=== PATIENT | female | born 1970 | race Asian ===

== ENCOUNTER 2017-01-04 05:55 | Day surgery (SDC) | payer OTHER ==
[~2017-01-04] VITALS: Ht 157.5 cm; Wt 54.9 kg
[2017-01-04 06:45] VITALS: Ht 157.5 cm; Wt 54.9 kg
[2017-01-04] MEDS ORDERED: ASPI81TA3 PO (06:58)
[2017-01-04] MEDS ORDERED: MULT-762 PO (06:58)
[2017-01-04 07:18] VITALS: BP 118/74; PULSE 92; RESP 20
[2017-01-04] MEDS ORDERED: FENTAnyl 50 MCG/ML VIAL ONE (07:42)
[2017-01-04] MEDS ORDERED: MIDAZOLAM 1 MG/ML 2 ML INJ ONE (07:42)
--- NOTE | 2017-01-04 07:44 | OPPN ---
Date/Time of Note Date/Time of Note DATE: 01/04/17 TIME: 07:42 Operative Report Preoperative Diagnosis Abdominal pain Gastritis Postoperative Diagnosis Gastritis with erosions Operation/Procedure Performed Esophagogastroduodenoscopy and biopsy Provider: JOSE ANTONIO LOPEZ MD Anesthesia Type: moderate sedation Estimated blood loss: none Transfusion Required: no Specimens Gastric mucosal biopsy Grafts/Implants: none Complications: no JOSE ANTONIO LOPEZ MD Jan 04, 2017 07:43
[2017-01-04 08:02] VITALS: BP 108/69; RESP 20
--- NOTE | 2017-01-04 08:26 | GILP ---
DATE OF PROCEDURE: 01/04/2017 PROCEDURE PERFORMED: Esophagogastroduodenoscopy and biopsy. SURGEON: Evgeny Lugo MD PREOPERATIVE DIAGNOSES: 1. Abdominal pain. 2. Helicobacter pylori gastritis. POSTOPERATIVE DIAGNOSES: 1. Gastritis with erosions. 2. Gastric mucosal biopsies were taken for Helicobacter pylori test. 3. Hiatal hernia. 4. Gastroesophageal reflux disease. INDICATION: Ms. Sukhwinder Holliday is a 46-year-old, obese female patient who had upper abdominal pain, history of H. pylori gastritis. The patient was scheduled for endoscopy examination for further evaluation. The procedure and possible complications were well explained to the patient. She understood and consented to the procedure. DESCRIPTION OF PROCEDURE: Under the influence of fentanyl and Versed, the gastroscope was carefully introduced into the esophagus under direct vision it was advanced to the stomach, the pylorus into the duodenal bulb, and descending duodenum. Findings in the esophagus, the patient had hiatal hernia and gastroesophageal reflux disease. Stomach, she had gastritis with erosions. Gastric mucosal biopsies were taken for Helicobacter pylori test. Duodenum was normal. She tolerated the procedure very well, and there was no complications from the procedure. At the end of procedure she was awake with stable vital signs and she was discharged home in the care of her family. IMPRESSION: Please see postop diagnosis. PLAN: 1. Pantoprazole 40 mg by mouth in a.m. 2. Await Helicobacter pylori test report. Dictated By: MD JENI Martinez/[email or web address]/[email or web address] /Document#: [id number]
== END 2017-01-04 10:19 | disposition home or self-care (01) ==
LOC: GIL 05:55
PROVIDERS: ATTEND Internal Medicine Gastroenterology
DX: K29.70 Gastritis, unspecified, without bleeding (principal); K44.9 Diaphragmatic hernia without obstruction or gangrene; K21.9 Gastro-esophageal reflux disease without esophagitis; Z79.82 Long term (current) use of aspirin
CPT/HCPCS: 43239; 84703; 87081; J2250; J3010; Z7610